=== PATIENT | male | born 1965 | race African-American/Black ===

== ENCOUNTER → 2019-04-29 | Outpatient (CLI) | payer BC, OTHER | LOC: ZCOL.LAB 18:16 | DX: K04.7 Periapical abscess without sinus (principal) ==

== ENCOUNTER → 2019-06-14 | Outpatient (CLI) | payer MEDICARE, OTHER | LOC: ZCOL.LAB 17:07 | DX: J32.0 Chronic maxillary sinusitis (principal) ==

== ENCOUNTER → 2021-03-09 | Outpatient (CLI) | payer MEDICARE, OTHER ==
[~2021-03-09] MED LIST: DESYREL 50MG50 MG; EFFE25TA
[2021-03-10 16:22] LABS: CLOSTRIDIUM DIFF A/B NEG; CLOSTRIDIUM DIFF A/B INTERP NonToxigenic C.diff
== END ==
LOC: COL.LAB 14:22 → COL.RAD 14:22
PROVIDERS: Student in an Organized Health Care Education/Training Program
DX: K76.9 Liver disease, unspecified (principal); R19.7 Diarrhea, unspecified
CPT/HCPCS: Q9967